=== PATIENT | male | born 1995 | race Two or more races ===

== ENCOUNTER → 2021-10-18 | Emergency (ER) | payer OTHER ==
[~2021-10-18] VITALS: Ht 188 cm; Wt 118.8 kg
[~2021-10-18] MED LIST: ACETAMINOPHEN 500 MG TAB PO ONE; HYDR-4902 PO
[2021-10-18 16:17] VITALS: BP 154/87
== END | disposition home or self-care (01) ==
LOC: ER 16:12
DX: S42.021A Displaced fracture of shaft of right clavicle, initial encounter for closed fracture (principal); X58.XXXA Exposure to other specified factors, initial encounter; Y93.89 Activity, other specified; Y92.89 Other specified places as the place of occurrence of the external cause; Y99.8 Other external cause status
CPT/HCPCS: 71045; 73000; 73030; 73060; 73560